=== PATIENT | female | born 1980 | race Asian ===

== ENCOUNTER 2018-02-08 09:31 | Inpatient (IN) | payer SELFPAY ==
[~2018-02-08] VITALS: Ht 170 cm; Wt 83.5 kg
[2018-02-10] MEDS ORDERED: LACTATED RINGERS 1,000 ML IV SCH (02:22)
[2018-02-10] MEDS ORDERED: PROMETHAZINE 25 MG/ML VIAL IVP PRN (02:25)
[2018-02-10] MEDS ORDERED: NALBUPHINE 10 MG/ML AMP IVP PRN (02:25)
[2018-02-10] MEDS ORDERED: OXYTOCIN 20 UNITS in LACTATED RINGERS 1,000 ML IV SCH (02:25)
[2018-02-10] MEDS ORDERED: LACTATED RINGERS 500 ML IV ONE (02:25)
[2018-02-10] MEDS ORDERED: MISOPROSTOL 25 MCG TAB VG PRN (02:25)
[2018-02-10 02:29] VITALS: BP 113/65
[2018-02-10 02:43] LABS: APPEARANCE,URINE CLEAR (CLEAR); BILIRUBIN,URINE NEGATIVE (NEGATIVE); BLOOD, URINE NEGATIVE (NEGATIVE); COLOR,URINE YELLOW (YELLOW); LEUKOCYTE ESTERASE ,URINE TRACE (NEGATIVE); NITRITE, URINE NEGATIVE (NEGATIVE); PH,URINE 6.5 (5.0-9.0); UGLUCOSE NEGATIVE (NEGATIVE)
[2018-02-10 03:57] LABS: RBC,URINE 0-5 (RARE) /HPF (0-5); WBC,URINE 0-5 (RARE) /HPF (0-5)
[2018-02-10 04:56] LABS: BASOPHILS % (AUTO) 0.8 % (0.0-2.0); EOSINOPHILS # (AUTO) 0.1 K/uL (0-0.4); EOSINOPHILS % (AUTO) 1.2 % (0.0-4.0); HEMATOCRIT 34.5 % (36-48); HEMOGLOBIN 11.3 g/dL (12.0-16.0); LYMPHOCYTES # (AUTO) 1.1 K/uL (2.5-16.5); LYMPHOCYTES % (AUTO) 22.5 % (20.5-51.1); MEAN CORPUSCULAR HEMOGLOBIN 30 pg (27-31); MEAN CORPUSCULAR HGB CONC 33 g/dL (33-37); MEAN CORPUSCULAR VOLUME 91.5 fL (80-94); MONOCYTES # (AUTO) 0.4 K/uL (0.8-1.0); MONOCYTES % (AUTO) 8.3 % (1.7-9.3); NEUTROPHILS # (AUTO) 3.1 K/uL (1.8-7.7); NEUTROPHILS % (AUTO) 67.2 % (42.2-75.2); PLATELET COUNT (AUTO) 127 K/uL (140-450); RED BLOOD CELL COUNT(AUTO) 3.77 MIL/uL (4.20-5.40); WHITE BLOOD COUNT (AUTO) 4.7 K/uL (4.8-10.8)
[2018-02-10] MEDS ORDERED: BUPIVACAINE 0.125%/NS PREMIX 250 ML EPI SCH (05:15)
[2018-02-10] MEDS ORDERED: BUPIVACAINE 0.125%/NS PREMIX 250 ML ONE (05:17)
--- NOTE | 2018-02-10 09:11 | NUR ---
PATIENT HAS BEEN SCREENED AND CATEGORIZED LOW NUTRITION RISK. PATIENT WILL BE SEEN WITHIN 7 DAYS OF ADMISSION. 02/16/[address]
[2018-02-10] MEDS ORDERED: OXYTOCIN 10 UNITS/ML VIAL ONE (13:00)
[2018-02-10] MEDS: OXYTOCIN 10 UNITS/ML VIAL IM SCH ×2 (14:01→14:03)
[2018-02-10] MEDS ORDERED: IBUPROFEN 800 MG TAB PO PRN (15:15)
[2018-02-10] MEDS ORDERED: oxyCODONE/APAP 5/325 MG 1 TAB TAB PO PRN (15:15)
[2018-02-10] MEDS ORDERED: TEMAZEPAM 15 MG CAP PO PRN (15:15)
[2018-02-10] MEDS ORDERED: BENZOCAINE/MENTHOL 20%-0.5% 60 GM CAN TP PRN (15:15)
[2018-02-10] MEDS ORDERED: HYDROcodone/APAP 5/325 MG 1 TAB TAB PO PRN (16:00)
[2018-02-10] MEDS ORDERED: METHYLERGONOVINE 0.2 MG/ML AMP IM PRN (16:00)
[2018-02-10] MEDS ORDERED: DOCUSATE SOD/SENNA 50/8.6 MG 1 TAB PO SCH (21:00)
[2018-02-11 06:08] LABS: HEMATOCRIT 27.8 % (36-48); HEMOGLOBIN 9.5 g/dL (12.0-16.0)
== END 2018-02-12 15:20 | disposition home or self-care (01) | DRG 775 ==
LOC: MLD 02-10 02:10 → MFCC 02-10 19:15
PROVIDERS: ADMIT Obstetrics & Gynecology; ATTEND Obstetrics & Gynecology
PROC: 0W8NXZZ Division of Female Perineum, External Approach (ICD-10-PCS; principal; 2018-02-10)
PROC: 10D07Z6 Extraction of Products of Conception, Vacuum, Via Natural or Artificial Opening (ICD-10-PCS; 2018-02-10)
PROC: 0HQ9XZZ Repair Perineum Skin, External Approach (ICD-10-PCS; 2018-02-10)
PROC: 3E0R3BZ Introduction of Anesthetic Agent into Spinal Canal, Percutaneous Approach (ICD-10-PCS; 2018-02-10)
PROC: 00HU33Z Insertion of Infusion Device into Spinal Canal, Percutaneous Approach (ICD-10-PCS; 2018-02-10)
PROC: 3E033VJ Introduction of Other Hormone into Peripheral Vein, Percutaneous Approach (ICD-10-PCS; 2018-02-10)
DX: O69.1XX0 Labor and delivery complicated by cord around neck, with compression, not applicable or unspecified (principal); O48.0 Post-term pregnancy; O70.0 First degree perineal laceration during delivery; O89.4 Spinal and epidural anesthesia-induced headache during the puerperium; Z83.3 Family history of diabetes mellitus; Z3A.40 40 weeks gestation of pregnancy; Z37.0 Single live birth
CPT/HCPCS: 36415; 51702; 59200; 59409; 81001; 85018; 85025; 86592; 86886; 86900; 86901; 87086; 90715; J2590; J3490; J7120